=== PATIENT | female | born 1975 | race Caucasian/White ===

== ENCOUNTER 2018-05-12 21:14 | Emergency (ER) | payer BC ==
[~2018-05-12] VITALS: Ht 157.5 cm; Wt 89.8 kg
[~2018-05-12 21:14] MED LIST: ACET500T33 PO; DESV50TA PO; IBUP200T44 PO; MULT1TAB52 PO; NORT25CA PO; PHEN105C PO
--- NOTE | 2018-05-12 21:24 | ED.ADGEN ---
Past History Past Medical History: Migraines Past Surgical History: Cholecystectomy, Hysterectomy, Other Alcohol Use: Rarely Drug Use: None Adult General Chief Complaint Chief Complaint ".. I had just eaten some Cheese crackers.. and then I got this bad .. Lt. lower abd. pain...I ve felt off all day.. Like if I could not urinate.. or discomfort on the Lt....but it has gotten severe this afternoon...." HPI HPI Patient is a 42 year old female who presents with above history and left lower quadrant abdomen pain. Patient denies any specific history of dysuria but has had less urine output. Patient describes her pain as severe.. Patient denies any vaginal discharge. Patient denies any trauma. Patient denies any bad food. Patient denies history of constipation. Patient is able to pass gas. Patient has had abdomen surgeries with a partial hysterectomy, cholecystectomy and a bladder sling operation. Patient still retains ovaries. No history of travel. No history of ill contacts. Has pets- dog and cats, but they are not sick. No significant No specific ill contacts. No history of kidney stones, colitis, IBS with her or family members. Review of Systems Review of Systems Constitutional: Denies fever or chills [] Eyes: Denies change in visual acuity, redness, or eye pain [] HENT: Denies nasal congestion or sore throat [] Respiratory: Denies cough or shortness of breath [] Cardiovascular: No additional information not addressed in HPI [] GI: Complaints of abdominal pain, nausea. Denies, vomiting, bloody stools or diarrhea [] : Denies dysuria or hematuria [] Musculoskeletal: Denies back pain or joint pain [] Integument: Denies rash or skin lesions [] Neurologic: Denies headache, focal weakness or sensory changes [] Endocrine: Denies polyuria or polydipsia [] All other systems were reviewed and found to be within normal limits, except as documented in this note. Family History Family History Non contributory Current Medications Current Medications Current Medications Medications (Trade) Dose Ordered Sig/Lizzie Start Time Stop Time Status Last Admin Dose Admin Famotidine (Pepcid) 20 mg 1X ONCE 05/12/18 22:15 05/12/18 22:16 DC 05/12/18 22:31 20 MG Ketorolac Tromethamine (Toradol) 30 mg 1X ONCE 05/12/18 23:15 05/12/18 23:16 DC 05/12/18 23:19 30 MG Lactated Ringer's 1,000 ml @ 75 mls/hr 1X ONCE 05/12/18 21:45 05/13/18 11:04 05/12/18 21:51 75 MLS/HR Magnesium Hydroxide (Milk Of Magnesia) 2,400 mg 1X ONCE 05/12/18 22:15 05/12/18 22:16 DC 05/12/18 22:31 2,400 MG Morphine Sulfate (Morphine 10mg Syringe) 10 mg 1X ONCE 05/12/18 22:15 05/12/18 22:16 DC 05/12/18 22:27 10 MG Ondansetron HCl (Zofran Odt) 8 mg 1X ONCE 05/12/18 22:15 05/12/18 22:16 DC 05/12/18 22:30 8 MG Tamsulosin HCl (Flomax) 0.4 mg 1X ONCE 05/12/18 23:15 05/12/18 23:16 DC 05/12/18 23:17 0.4 MG Allergies Allergies Allergies Coded Allergies Type Severity Reaction Last Updated Verified Penicillins Allergy Unknown 11/06/15 No oxycodone Adverse Reaction Intermediate Nausea and Vomiting 05/12/18 Yes Physical Exam Physical Exam Constitutional: Moderately acute distress, non-toxic appearance. [] HENT: Normocephalic, atraumatic, bilateral external ears normal, oropharynx moist, no oral exudates, nose normal. [] Eyes: PERRLA, EOMI, conjunctiva normal, no discharge. [] Neck: Normal range of motion, no tenderness, supple, no stridor. [] Cardiovascular:Heart rate regular rhythm, no murmur [] Lungs & Thorax: Bilateral breath sounds clear to auscultation [] Abdomen: Bowel sounds decreased , soft, Lt. lower tenderness, no masses, no pulsatile masses. [] Rebound to left lower quadrant. Old surgical scars Skin: Warm, dry, no erythema, no rash. [] Back: No tenderness, Lt CVA tenderness on percussion. Extremities: No tenderness, no cyanosis, no clubbing, ROM intact, no edema. [] No true psoas or obturator or heeltap Neurologic: Alert and oriented X 3, normal motor function, normal sensory function, no focal deficits noted. [] Psychologic: Affect anxious, judgement normal, mood normal. [] Current Patient Data Vital Signs Vital Signs Date Time Temp Pulse Resp B/P (MAP) Pulse Ox O2 Delivery O2 Flow Rate FiO2 05/12/18 23:59 68 16 127/72 (90) 97 Room Air 05/12/18 21:17 98.6 Lab Results Laboratory Tests Test 05/12/18 21:20 05/12/18 21:45 05/12/18 21:53 Urine Collection Type Void Urine Color Yellow Urine Clarity Clear Urine pH 6.0 Urine Specific [place] 1.025 Urine Protein Neg (NEG-TRACE) Urine Glucose (UA) Neg mg/dL (NEG) Urine Ketones (Stick) Trace mg/dL (NEG) Urine Blood Large (NEG) Urine Nitrite Neg (NEG) Urine Bilirubin Neg (NEG) Urine Urobilinogen Dipstick 0.2 mg/dL (0.2 mg/dL) Urine Leukocyte Esterase Neg (NEG) Urine RBC 11-20 /HPF (0-2) Urine WBC Occ /HPF (0-4) Urine Squamous Epithelial Cells Few /LPF Urine Bacteria Few /HPF (0-FEW) Urine Mucus Slight /LPF Urine Test Negative (NEG) White Blood Count 8.5 x10^3/uL (4.0-11.0) Red Blood Count 5.12 x10^6/uL (3.50-5.40) Hemoglobin 14.3 g/dL (12.0-15.5) Hematocrit 41.7 % (36.0-47.0) Mean Corpuscular Volume 82 fL (79-100) Mean Corpuscular Hemoglobin 28 pg (25-35) Mean Corpuscular Hemoglobin Concent 34 g/dL (31-37) Red Cell Distribution Width 13.5 % (11.5-14.5) Platelet Count 328 x10^3/uL (140-400) Neutrophils (%) (Auto) 62 % (31-73) Lymphocytes (%) (Auto) 27 % (24-48) Monocytes (%) (Auto) 8 % (0-9) Eosinophils (%) (Auto) 3 % (0-3) Basophils (%) (Auto) 1 % (0-3) Neutrophils # (Auto) 5.3 x10^3uL (1.8-7.7) Lymphocytes # (Auto) 2.3 x10^3/uL (1.0-4.8) Monocytes # (Auto) 0.7 x10^3/uL (0.0-1.1) Eosinophils # (Auto) 0.2 x10^3/uL (0.0-0.7) Basophils # (Auto) 0.1 x10^3/uL (0.0-0.2) Sodium Level 142 mmol/L (136-145) Potassium Level 3.6 mmol/L (3.5-5.1) Chloride Level 107 mmol/L (98-107) Carbon Dioxide Level 27 mmol/L (21-32) Anion Gap 8 (6-14) Blood Urea Nitrogen 19 mg/dL (7-20) Creatinine 0.8 mg/dL (0.6-1.0) Estimated GFR (Cockcroft-Gault) 78.7 Glucose Level 110 mg/dL (70-99) H Calcium Level 9.2 mg/dL (8.5-10.1) Total Bilirubin 0.3 mg/dL (0.2-1.0) Direct Bilirubin 0.1 mg/dL (0.0-0.2) Aspartate Amino Transferase (AST) 19 U/L (15-37) Alanine Aminotransferase (ALT) 35 U/L (14-59) Alkaline Phosphatase 133 U/L (46-116) H Total Protein 7.1 g/dL (6.4-8.2) Albumin 3.6 g/dL (3.4-5.0) Amylase Level 53 U/L (25-115) Lipase 92 U/L (73-393) EKG EKG [] Radiology/Procedures Radiology/Procedures My interpretation acute abdomen film shows no acute cardiopulmonary findings. No free air under the diaphragm. Has findings of previous surgical clips in right upper quadrant and lower pelvic area. There is increased stool in colon. Left renal silhouette appears to be slightly enlarged. Does have stones and bladder. Nonspecific bowel gas pattern.[] \\ My interpretation of CT shows distal stone with hydronephrosis. See formal report when available. Course & Med Decision Making Course & Med Decision Making Pertinent Labs and Imaging studies reviewed. (See chart for details) Push fluids. Tylenol and Ibuprofen for pain. Vicoprofen if marked pain up 4 x day. Avoid constipation. Flomax daily if passing stone. Zofran for nausea and vomiting. Screen urine and save stone if passed. Follow up with primary. Return if any concern.s. [] Final Impression Final Impression 1. Abdomen Pain[]-left lower quadrant 2. Hematuria 3. Renal colic- Lt. stone- 4.5 distal. 4. Constipation Dragon Disclaimer Dragon Disclaimer This electronic medical record was generated, in whole or in part, using a voice recognition dictation system. AMBERLY ARZOLA MD May 12, 2018 21:24
[2018-05-12] MEDS: IV RINGERS SOLUTION,LACTATED 1,000 ML IV ONE (21:51)
[2018-05-12 22:03] LABS: CLARITY,URINE CLEAR; COLOR,URINE YELLOW
[2018-05-12 22:04] LABS: BACTERIA,URINE FEW /HPF (0-FEW); BILIRUBIN,URINE NEG (NEG); GLUCOSE,URINE NEG (NEG); NITRITE,URINE NEG (NEG); SQUAMOUS EPITHELIAL CELL,UR FEW /LPF; UROBILINOGEN,URINE 0.2 mg/dL (0.2 mg/dL); WBC,URINE OCC /HPF (0-4)
[2018-05-12 22:05] LABS: U PREG PATIENT NEGATIVE (NEG)
[2018-05-12 22:19] LABS: BASO # 0.1 x10^3/uL (0.0-0.2); BASO % 1 % (0-3); EOS # 0.2 x10^3/uL (0.0-0.7); EOS % 3 % (0-3); HEMATOCRIT 41.7 % (36.0-47.0); HEMOGLOBIN 14.3 g/dL (12.0-15.5); LYMPH # 2.3 x10^3/uL (1.0-4.8); LYMPH % 27 % (24-48); MEAN CORPUSCULAR HEMOGLOBIN 28 pg (25-35); MEAN CORPUSCULAR HGB CONC 34 g/dL (31-37); MEAN CORPUSCULAR VOLUME 82 fL (79-100); MONO # 0.7 x10^3/uL (0.0-1.1); MONO % 8 % (0-9); NEUT # 5.3 x10^3uL (1.8-7.7); NEUT % 62 % (31-73); PLATELET COUNT 328 x10^3/uL (140-400); RED BLOOD COUNT 5.12 x10^6/uL (3.50-5.40); RED CELL DISTRIBUTION WIDTH 13.5 % (11.5-14.5); WHITE BLOOD COUNT 8.5 x10^3/uL (4.0-11.0)
[2018-05-12 22:26] LABS: CALCIUM 9.2 mg/dL (8.5-10.1); CREATININE 0.8 mg/dL (0.6-1.0); GFR 78.7; POTASSIUM 3.6 mmol/L (3.5-5.1)
[2018-05-12] MEDS: MORPHINE SULFATE 10 MG/ML SYRINGE. SQ ONE (22:27)
[2018-05-12] MEDS: ONDANSETRON ODT 4 MG TAB.RAPDIS PO ONE (22:30)
[2018-05-12] MEDS: FAMOTIDINE 20 MG TABLET PO ONE (22:31)
[2018-05-12] MEDS: MAGNESIUM HYDROXIDE 2,400 MG/30 ML ORAL.SUSP. PO ONE (22:31)
[2018-05-12 22:40] LABS: ALBUMIN 3.6 g/dL (3.4-5.0); DIRECT BILIRUBIN 0.1 mg/dL (0.0-0.2); TOTAL BILIRUBIN 0.3 mg/dL (0.2-1.0); TOTAL PROTEIN 7.1 g/dL (6.4-8.2)
[2018-05-12] MEDS: TAMSULOSIN 0.4 MG CAP.ER.24H. PO ONE (23:17)
[2018-05-12] MEDS: KETOROLAC 30 MG/ML VIAL. IV ONE (23:19)
--- NOTE | 2018-05-12 23:39 | RAD ---
Abdominal and Pelvis CT, Without Contrast: History: Left flank pain and lower abdominal pain. Comparison: None. Procedure: Axial images are obtained of the abdomen and pelvis, without IV or oral contrast. CT Abdomen without Contrast: Findings: Evaluation of solid organs is limited without contrast. Evaluation of stomach and bowel is limited without oral contrast. Liver: Normal. Spleen: Normal. Pancreas: Normal. Adrenal Glands: Normal. Kidneys: There is mild left hydroureter and left hydronephrosis. There is no free air or free fluid. There is no lymphadenopathy. Impression: Please see CT Pelvis without Contrast. End Impression. CT Pelvis without Contrast: Findings: The urinary bladder is seen with a 4.5 mm stone in the left UVJ. The appendix is normal. There is no free fluid. There is no lymphadenopathy. There is no pericolonic inflammation identified. Impression: 4.5 mm stone left UVJ with mild left hydronephrosis and left hydroureter. End impression PQRS Compliance Statement: One or more of the following individualized dose reduction techniques were utilized for this examination: 1. Automated exposure control 2. Adjustment of the mA and/or kV according to patient size 3. Use of iterative reconstruction technique Electronically signed by: Cas Thomas III, MD (05/12/2018 11:37 PM) [facility]
[2018-05-12 23:59] VITALS: BP 127/72
[2018-05-12] MEDS ORDERED: HYDR-79 PO (23:59)
[2018-05-12] MEDS ORDERED: TAMS0.4C97 PO (23:59)
[2018-05-12] MEDS ORDERED: ONDA8TAB12 PO (23:59)
--- NOTE | 2018-05-13 08:16 | RAD ---
Acute abdomen series with chest, 3 views, 05/12/2018: HISTORY: Left-sided pain There are surgical clips in the right upper quadrant. The abdominal gas pattern is unremarkable. No free air is evident in the abdomen. There is no evidence organomegaly. The patient's known small calculus at the left ureterovesical junction is faintly visible. There are several additional lower pelvic calcifications compatible with phleboliths. The heart size and pulmonary vascularity are normal. The lungs are clear. There is no evidence of pleural fluid. IMPRESSION: 1. The patient's known left UVJ calculus is faintly visible radiographically. 2. Otherwise no acute abdominal abnormality is detected. Electronically signed by: Benito Fry MD (05/13/2018 8:13 AM) [facility]
== END 2018-05-13 00:14 | disposition home or self-care (01) ==
LOC: ER 21:14
DX: N23 Unspecified renal colic (principal); R31.9 Hematuria, unspecified; K59.00 Constipation, unspecified; G43.909 Migraine, unspecified, not intractable, without status migrainosus; Z90.49 Acquired absence of other specified parts of digestive tract; Z90.710 Acquired absence of both cervix and uterus; Z88.0 Allergy status to penicillin; Z88.5 Allergy status to narcotic agent
CPT/HCPCS: 36415; 74022; 74176; 80048; 80076; 81001; 81025; 82150; 83690; 85025; 96361; 96372; 96374; 99285; J1885; J2270; J7120; Q0162

== ENCOUNTER → 2018-05-28 | Outpatient (CLI) | payer BC ==
[2018-05-12 23:59] VITALS: BP 127/72
[~2018-05-28] MED LIST changes: +HYDR-79 PO; +ONDA8TAB12 PO; +TAMS0.4C97 PO
--- NOTE | 2018-05-28 15:45 | RAD ---
PQRS Compliance Statement: One or more of the following individualized dose reduction techniques were utilized for this examination: 1. Automated exposure control 2. Adjustment of the mA and/or kV according to patient size 3. Use of iterative reconstruction technique CT ABDOMEN PELVIS WO CONTRAST Clinical Indication: Follow up left kidney stone seen 05/12/18 Comparison: CT the abdomen and pelvis without contrast, May 12, 2018. Technique: Helical CT imaging of the abdomen and pelvis is performed without IV or oral contrast. Findings: Lung bases clear. Cardiac size normal. Cholecystectomy. Tiny hypodensity in the hepatic dome is stable. Liver otherwise homogeneous. Spleen, pancreas, adrenal glands, and abdominal aorta are normal. No renal, ureteral, or bladder calculus. No hydronephrosis or perinephric stranding. Previously seen calculus at the left UVJ is no longer present. Stomach unremarkable. No dilated small bowel. No colon wall thickening. The appendix is normal. Subcentimeter retroperitoneal and mesenteric lymph nodes. No adenopathy. Tiny fat-containing umbilical hernia. No abdominal free fluid. Urinary bladder is not well distended accentuating wall thickness. Uterus surgically absent. No pelvic free fluid. No acute bone abnormality. IMPRESSION: No acute abdominal or pelvic abnormality. No obstructive uropathy. Electronically signed by: Ha Fernandez MD (05/28/2018 3:42 PM) [id number]
== END | disposition home or self-care (01) ==
LOC: CT 15:06
PROVIDERS: ATTEND Urology
DX: N20.1 Calculus of ureter (principal); G43.909 Migraine, unspecified, not intractable, without status migrainosus
CPT/HCPCS: 74176

== ENCOUNTER → 2019-02-07 | Outpatient (CLI) | payer BC ==
[~2019-02-07] MED LIST changes: +HYDR-1179 PO; -HYDR-79 PO; -PHEN105C PO; +PHEN105C32 PO
--- NOTE | 2019-02-08 08:07 | RAD ---
Right elbow, 2 views, 02/07/2019: HISTORY: Pain No fracture or dislocation is identified. No significant arthritic change or joint effusion is evident. Impression: No significant right elbow abnormality is detected. Electronically signed by: Benito Fry MD (02/08/2019 8:05 AM) [facility]
--- NOTE | 2019-02-08 08:09 | RAD ---
Right hand, 2 views, 02/07/2019: HISTORY: Pain There is a linear radiopaque foreign body compatible with an old broken needle fragment projected over the soft tissues along the volar aspect of the distal forearm. No hand fracture or dislocation is identified. No bone erosions or significant arthritic changes are seen. IMPRESSION: 1. No significant bony abnormality is detected. 2. Small radiopaque foreign body in the soft tissues of the distal forearm Electronically signed by: Benito Fry MD (02/08/2019 8:07 AM) [facility]
== END | disposition home or self-care (01) ==
LOC: PMG 17:02
PROVIDERS: ATTEND Registered Nurse
DX: S50.851A Superficial foreign body of right forearm, initial encounter (principal); X58.XXXA Exposure to other specified factors, initial encounter; Y93.89 Activity, other specified; Y92.89 Other specified places as the place of occurrence of the external cause; Y99.8 Other external cause status
CPT/HCPCS: 73070; 73120

== ENCOUNTER → 2019-03-01 | Outpatient (CLI) | payer BC ==
--- NOTE | 2019-03-01 11:11 | RAD ---
Focused sonographic evaluation of the distal right forearm 03/01/2019 INDICATION: Prior radiographic identification of a metallic density radiopaque foreign body in the anterior distal forearm. COMPARISON STUDY: Right hand radiographs February 07, 2019 Discussion: Focused ultrasound evaluation of the distal right forearm was performed. No foreign bodies were identified sonographically. No focal mass or fluid collection is seen. No focal sonographic abnormality is seen. IMPRESSION: No focal sonographic abnormality is identified. Consider correlation with radiograph to evaluate for presence of radiopaque foreign body previously identified radiographically. Electronically signed by: Kenji Ruiz MD (03/01/2019 11:08 AM) [id number]
== END | disposition home or self-care (01) ==
LOC: US 09:49
PROVIDERS: ATTEND Family Medicine
DX: M79.5 Residual foreign body in soft tissue (principal)
CPT/HCPCS: 76881

== ENCOUNTER 2019-05-09 11:42 | Emergency (ER) | payer BC ==
[~2019-05-09] VITALS: Ht 157.5 cm; Wt 90.7 kg
[2019-05-09] MEDS ORDERED: IV NORMAL SALINE 1,000ML 1,000 ML IV SCH (12:07)
--- NOTE | 2019-05-09 12:14 | PHYS DOC ---
Past History Past Medical History: No Pertinent History Past Surgical History: Hysterectomy, Other Alcohol Use: None Drug Use: None Adult General Chief Complaint Chief Complaint: ABDOMINAL PAIN HPI HPI Patient is a 43 year old female who presents with complaint of nausea, vomiting, and diarrhea. Patient states her symptoms started this morning upon awakening. Notes that she has had 4-5 episodes of vomiting and too numerous to count episodes of loose stools since awakening. Notes that she has been having cramping abdominal pain intermittently throughout the morning and states that this has been associated with vomiting and bowel movements. Denies any localizing abdominal pain at rest. No fever. Patient has come to the emergency department with her daughter who is also been having similar symptoms. Denies any known exposure to spoiled food. States that her ate the same food last night but does not have any symptoms today. Review of Systems Review of Systems Constitutional: Denies fever or chills [] Eyes: Denies change in visual acuity, redness, or eye pain [] HENT: Denies nasal congestion or sore throat [] Respiratory: Denies cough or shortness of breath [] Cardiovascular: Denies chest pain or edema[] GI: Nausea, vomiting, diarrhea, abdominal cramping[] : Denies dysuria or hematuria [] Musculoskeletal: Denies back pain or joint pain [] Integument: Denies rash or skin lesions [] Neurologic: Denies headache, focal weakness or sensory changes [] All other systems were reviewed and found to be within normal limits, except as documented in this note. Current Medications Current Medications Current Medications Medications (Trade) Dose Ordered Sig/[facility] Start Time Stop Time Status Last Admin Dose Admin Famotidine (Pepcid Vial) 20 mg 1X ONCE 05/09/19 12:30 05/09/19 12:31 Ondansetron HCl (Zofran) 4 mg 1X ONCE 05/09/19 12:30 05/09/19 12:31 Sodium Chloride 1,000 ml @ 1,000 mls/hr Q1H 05/09/19 12:07 05/09/19 13:06 Allergies Allergies Allergies Coded Allergies Type Severity Reaction Last Updated Verified Penicillins Allergy Unknown 11/06/15 No oxycodone Adverse Reaction Intermediate Nausea and Vomiting 05/12/18 Yes Physical Exam Physical Exam Constitutional: Alert, afebrile, appears ill. [] HENT: Normocephalic, atraumatic, bilateral external ears normal, oropharynx moist, no oral exudates, nose normal. [] Eyes: PERRLA, EOMI, conjunctiva normal, no discharge. [] Neck: Normal range of motion, no tenderness, supple, no stridor. [] Cardiovascular: Tachycardia, regular rhythm, no murmur [] Lungs & Thorax: Bilateral breath sounds clear to auscultation [] Abdomen: Bowel sounds normal, soft, no tenderness, no masses, no pulsatile mas ses. [] Skin: Warm, dry, no erythema, no rash. [] Back: No tenderness, no CVA tenderness. [] Extremities: No tenderness, no cyanosis, no clubbing, ROM intact, no edema. [] Neurologic: Alert and oriented X 3, normal motor function, normal sensory function, no focal deficits noted. [] Current Patient Data Vital Signs Vital Signs Date Time Temp Pulse Resp B/P (MAP) Pulse Ox O2 Delivery O2 Flow Rate FiO2 05/09/19 12:39 99.0 76 18 97 Room Air Lab Results Laboratory Tests Test 05/09/19 12:25 White Blood Count 11.3 x10^3/uL Red Blood Count 5.84 x10^6/uL Hemoglobin 14.9 g/dL Hematocrit 45.3 % Mean Corpuscular Volume 78 fL Mean Corpuscular Hemoglobin 26 pg Mean Corpuscular Hemoglobin Concent 33 g/dL Red Cell Distribution Width 17.1 % Platelet Count 333 x10^3/uL Neutrophils (%) (Auto) 90 % Lymphocytes (%) (Auto) 5 % Monocytes (%) (Auto) 4 % Eosinophils (%) (Auto) 1 % Basophils (%) (Auto) 1 % Neutrophils # (Auto) 10.2 x10^3uL Lymphocytes # (Auto) 0.6 x10^3/uL Monocytes # (Auto) 0.4 x10^3/uL Eosinophils # (Auto) 0.1 x10^3/uL Basophils # (Auto) 0.1 x10^3/uL Sodium Level 140 mmol/L Potassium Level 4.1 mmol/L Chloride Level 104 mmol/L Carbon Dioxide Level 26 mmol/L Anion Gap 10 Blood Urea Nitrogen 19 mg/dL Creatinine 0.9 mg/dL Estimated GFR (Cockcroft-Gault) 68.3 BUN/Creatinine Ratio 21 Glucose Level 92 mg/dL Calcium Level 9.0 mg/dL Total Bilirubin 0.9 mg/dL Aspartate Amino Transf (AST/SGOT) 19 U/L Alanine Aminotransferase (ALT/SGPT) 34 U/L Alkaline Phosphatase 129 U/L Total Protein 7.4 g/dL Albumin 3.9 g/dL Albumin/Globulin Ratio 1.1 Lipase 53 U/L Current Medications Medications (Trade) Dose Ordered Sig/Lizzie Route PRN Reason Start Time Stop Time Status Last Admin Dose Admin Sodium Chloride 1,000 ml @ 1,000 mls/hr Q1H IV 05/09/19 12:07 05/09/19 13:06 DC 05/09/19 12:34 Ondansetron HCl (Zofran) 4 mg 1X ONCE IV 05/09/19 12:30 05/09/19 12:31 DC 05/09/19 12:34 Famotidine (Pepcid Vial) 20 mg 1X ONCE IVP 05/09/19 12:30 05/09/19 12:31 DC 05/09/19 12:34 EKG EKG Not performed[] Radiology/Procedures Radiology/Procedures Not performed[] Course & Med Decision Making Course & Med Decision Making Pertinent Labs and Imaging studies reviewed. (See chart for details) Patient given IV fluids, Zofran, and Pepcid. Patient's had no further episodes of vomiting. Symptoms appear consistent with self-limiting gastrointestinal i llness. Patient has no evidence of acute abdomen on examination. Patient appropriate for outpatient treatment and follow-up with primary doctor. Recommended follow-up in 2 days with PCP and recommended return to the emergency department for any worsening symptoms. Patient was understanding and in agreement with treatment plan.[] Dragon Disclaimer Dragon Disclaimer This electronic medical record was generated, in whole or in part, using a voice recognition dictation system. Departure Departure: Impression: Primary Impression: Nausea and vomiting Additional Impressions: Diarrhea Abdominal cramping Disposition: 01 HOME, SELF-CARE Condition: IMPROVED Referrals: CATHY RAMSEY (PCP) Patient Instructions: Abdominal Pain (Nonspecific), Diarrhea, Nausea and Vomiting Additional Instructions: Follow-up with your primary doctor in 2 days for reevaluation. Return to the emergency department for any worsening symptoms. Scripts Ondansetron (ONDANSETRON ODT) 4 Mg Tab.rapdis 1 TAB PO PRN Q6-8HRS PRN for NAUSEA/VOMITING, #16 TAB Prov: MIKA CLEMENTS MD 05/09/19 Problem Qualifiers Primary Impression: Nausea and vomiting Vomiting type: unspecified Vomiting Intractability: non-intractable Qualified Codes: R11.2 - Nausea with vomiting, unspecified Additional Impressions: Diarrhea Diarrhea type: presumed infectious Qualified Codes: R19.7 - Diarrhea, unspecified MIKA CLEMENTS MD May 09, 2019 12:14
[2019-05-09] MEDS ORDERED: ONDANSETRON PF 4 MG/2 ML VIAL. IV ONE (12:30)
[2019-05-09] MEDS ORDERED: FAMOTIDINE 20 MG/2 ML VIAL IVP ONE (12:30)
[2019-05-09 12:34] LABS: BASO # 0.1 x10^3/uL (0.0-0.2); BASO % 1 % (0-3); EOS # 0.1 x10^3/uL (0.0-0.7); EOS % 1 % (0-3); HEMATOCRIT 45.3 % (36.0-47.0); HEMOGLOBIN 14.9 g/dL (12.0-15.5); LYMPH # 0.6 x10^3/uL (1.0-4.8); LYMPH % 5 % (24-48); MEAN CORPUSCULAR HEMOGLOBIN 26 pg (25-35); MEAN CORPUSCULAR HGB CONC 33 g/dL (31-37); MEAN CORPUSCULAR VOLUME 78 fL (79-100); MONO # 0.4 x10^3/uL (0.0-1.1); MONO % 4 % (0-9); NEUT # 10.2 x10^3uL (1.8-7.7); NEUT % 90 % (31-73); PLATELET COUNT 333 x10^3/uL (140-400); RED BLOOD COUNT 5.84 x10^6/uL (3.50-5.40); RED CELL DISTRIBUTION WIDTH 17.1 % (11.5-14.5); WHITE BLOOD COUNT 11.3 x10^3/uL (4.0-11.0)
[2019-05-09 12:49] LABS: ALBUMIN 3.9 g/dL (3.4-5.0); ALBUMIN/GLOBULIN RATIO 1.1 (1.0-1.7); CREATININE 0.9 mg/dL (0.6-1.0); GFR 68.3; POTASSIUM 4.1 mmol/L (3.5-5.1); TOTAL BILIRUBIN 0.9 mg/dL (0.2-1.0); TOTAL PROTEIN 7.4 g/dL (6.4-8.2)
[2019-05-09] MEDS ORDERED: ONDA4TAB12 PO (13:20)
[2019-05-09 13:44] VITALS: BP 131/93
[2019-05-09] MEDS ORDERED: DIPHTH,PERTUSS(ACELL),TET TOX 0.5 ML DISP.SYRIN. VAX IM ONE (13:45)
== END 2019-05-09 13:44 | disposition home or self-care (01) ==
LOC: ER 11:42
DX: R11.2 Nausea with vomiting, unspecified (principal); R19.7 Diarrhea, unspecified; R10.9 Unspecified abdominal pain; Z90.710 Acquired absence of both cervix and uterus; Z88.0 Allergy status to penicillin; Z88.5 Allergy status to narcotic agent
CPT/HCPCS: 36415; 80053; 83690; 85025; 96361; 96374; 96375; 99284; J2405; J3490; J7030

== ENCOUNTER 2020-08-20 21:32 | Emergency (ER) | payer BC ==
[~2020-08-20] VITALS: Ht 157.5 cm; Wt 81.8 kg
[~2020-08-20 21:32] MED LIST changes: +MULT-445 PO; -MULT1TAB52 PO; +ONDA4TAB12 PO
--- NOTE | 2020-08-20 21:59 | PHYS DOC ---
Past History Past Medical History: No Pertinent History Past Surgical History: Hysterectomy, Other Alcohol Use: None Drug Use: None General Adult EDM: Chief Complaint: ABDOMINAL PAIN HPI: HPI: 44-year-old female presents with right lower quadrant abdominal pain. The patient started to have generalized lower abdominal pain about 3 days ago and it is gotten worse. Today it is extremely tender and any movement is painful. It is all in the right lower quadrant radiating to the left. Patient denies fall or trauma. She denies fever or chills. She still has her appendix. Review of Systems: Review of Systems: Constitutional: Denies fever or chills Eyes: Denies change in visual acuity HENT: Denies nasal congestion or sore throat Respiratory: Denies cough or shortness of breath Cardiovascular: Denies chest pain or edema GI: Right lower quadrant abdominal pain. Denies vomiting, bloody stools or diarrhea : Denies dysuria Musculoskeletal: Denies back pain or joint pain Integument: Denies rash Neurologic: Denies headache, focal weakness or sensory changes Endocrine: Denies polyuria or polydipsia Lymphatic: Denies swollen glands Psychiatric: Denies depression or anxiety Heart Score: Risk Factors: Risk Factors: DM, Current or recent (<one month) smoker, HTN, HLP, family history of CAD, obesity. Risk Scores: Score 0 - 3: 2.5% MACE over next 6 weeks - Discharge Home Score 4 - 6: 20.3% MACE over next 6 weeks - Admit for Clinical Observation Score 7 - 10: 72.7% MACE over next 6 weeks - Early Invasive Strategies Current Medications: Current Meds: Current Medications Medications (Trade) Dose Ordered Sig/[facility] Start Time Stop Time Status Last Admin Dose Admin Iohexol (Omnipaque 300 Mg/ml) 75 ml 1X ONCE 08/20/20 22:00 08/20/20 22:01 Sodium Chloride 1,000 ml @ 1,000 mls/hr 1X ONCE 08/20/20 22:00 08/20/20 22:59 Allergies: Allergies: Allergies Coded Allergies Type Severity Reaction Last Updated Verified Penicillins Allergy Unknown 11/06/15 No oxycodone Adverse Reaction Intermediate Nausea and Vomiting 05/12/18 Yes Physical Exam: PE: Constitutional: Well developed, well nourished, no acute distress, non-toxic appearance. [] HENT: Normocephalic, atraumatic, bilateral external ears normal, oropharynx moist, no oral exudates, nose normal. [] Eyes: PERRLA, EOMI, conjunctiva normal, no discharge. [] Neck: Normal range of motion, no tenderness, supple, no stridor. [] Cardiovascular:Heart rate regular rhythm, no murmur [] Lungs & Thorax: Bilateral breath sounds clear to auscultation [] Abdomen: Bowel sounds normal, soft, RLQ tenderness with guarding and rebound tenderness, no masses, no pulsatile masses. [] Skin: Warm, dry, no erythema, no rash. [] Back: No tenderness, no CVA tenderness. [] Extremities: No tenderness, no cyanosis, no clubbing, ROM intact, no edema. [] Neurologic: Alert and oriented X 3, normal motor function, normal sensory function, no focal deficits noted. [] Psychologic: Affect normal, judgement normal, mood normal. [] Current Patient Data: Vital Signs: Vital Signs Date Time Temp Pulse Resp B/P (MAP) Pulse Ox O2 Delivery O2 Flow Rate FiO2 08/20/20 21:52 99.8 117 22 133/78 (96) 98 Room Air EKG: EKG: [] Radiology/Procedures: Radiology/Procedures: [] Impressions: CT abdomen pelvis with contrast dated 08/20/2020. No comparison available. CLINICAL INDICATION: Right lower quadrant pain for 3 days. TECHNIQUE: Contiguous axial imaging of the abdomen pelvis performed after the administration of 75 cc Omnipaque 300. One or more of the following individualized dose reduction techniques were utilized for this examination: 1. Automated exposure control 2. Adjustment of the mA and/or kV according to patient size 3. Use of iterative reconstruction technique. FINDINGS: Limited images of lung bases are clear. Heart size within normal limits. No pleural or pericardial effusion. Liver and spleen are homogeneous. There is a tiny hypodensity at the inferior right lobe, likely small cyst or other benign lesion. No biliary ductal dilatation. The gallbladder is surgically absent. Spleen is normal in size. Pancreas, adrenal glands and kidneys are unremarkable. No hydronephrosis. Unopacified GI tract normal in caliber and contour. No focal bowel wall thickening. The appendix is normal in caliber. No ascites or lymphadenopathy. Abdominal aorta normal in caliber. Images of pelvis show nondistended urinary bladder. The uterus is surgically absent. There is a cystic focus at the right ovary that measures up to 3.1 cm. No significant free pelvic fluid or pelvic lymphadenopathy. Bone windows show no acute findings. Mild lower lumbar spondylosis. IMPRESSION: 1. No acute abnormality of abdomen or pelvis. Normal appendix. 2. There is a 3.1 cm right ovarian cyst. 3. Status post cholecystectomy. Electronically signed by: Bassem López MD (08/20/2020 10:49 PM) [facility] DICTATED AND SIGNED BY: BASSEM LÓPEZ MD DATE: 08/20/20 2249 CC: ANTELMO SHARMA DO; CATHY RAMSEY ~ Complete transvaginal pelvic ultrasound HISTORY: 44-year-old female with right lower quadrant abdominal pain, 3 cm right ovarian cyst on recent CT imaging. FINDINGS: Transvaginal imaging demonstrates absence of uterus hysterectomy. Left ovary absent or markedly atrophic. Right ovary measures 2.3 x 3.2 0.7 cm with intact blood flow. No pelvic fluid. Transvaginal imaging demonstrates placement of most of the right ovary by a hypoechoic round cyst which measures 2.5 x 2.4 x 2.5 cm with some echogenic internal septations, no vascular blood flow within this cyst, this is most typical of a subacute hemorrhagic cyst. The right ovary measures 4.1 x 2.9 x 2.5 cm. There is intact ovarian blood flow peripheral of this cyst with normal waveforms without evidence of ovarian torsion. The left ovary is not visualized presumably markedly atrophic or surgically absent similar to prior CT imaging. Hysterectomy. IMPRESSION: Right ovarian 2.5 cm unilocular hypoechoic cyst with internal septations most typical of a subacute hemorrhagic cyst. Consider follow-up sonography in 3 months to document that this resolves over time. Hysterectomy. Left ovary absent or markedly atrophic and not visualized. Electronically signed by: Sherry Putnam MD (08/21/2020 1:16 AM) [facility] DICTATED AND SIGNED BY: SHERRY PUTNAM MD DATE: 08/21/20 0116 CC: ANTELMO SHARMA DO; CATHY RAMSEY ~ Course & Med Decision Making: Course & Med Decision Making Pertinent Labs and Imaging studies reviewed. (See chart for details) The patient's labs are unremarkable. Her urinalysis is negative for infection. Her CT scan shows a right ovarian cyst. Given her level of pain, I will have an ultrasound performed. I have given her 4 mg of morphine and a [place] 7.5. The patient's ultrasound does not show torsion. It does show a complicated, likely hemorrhagic cyst. I will discharge the patient with [place] 5/325 if she has further pain. She will follow-up with OB for repeat ultrasound and a couple months. She is stable for discharge at this time. [] Dragon Disclaimer: Dragon Disclaimer: This electronic medical record was generated, in whole or in part, using a voice recognition dictation system. Departure Departure: Impression: Primary Impression: Ovarian cyst Qualified Codes: N83.201 - Unspecified ovarian cyst, right side Disposition: HOME/RESIDENCE PRIOR TO ADM Condition: STABLE Referrals: CATHY RAMSEY (PCP) Scripts Hydrocodone Bit/Acetaminophen (NORCO 5-325 TABLET) 1 Each Tablet 1 TAB PO PRN Q6HRS PRN for PAIN, #14 TAB 0 Refills Prov: ANTELMO SHARMA DO 08/21/20 ANTELMO SHARMA DO Aug 20, 2020 21:59
[2020-08-20] MEDS ORDERED: IOHEXOL 300 MG/ML 75 ML VIAL. IV ONE (22:00)
[2020-08-20] MEDS ORDERED: IV NORMAL SALINE 1,000ML 1,000 ML IV ONE (22:00)
[2020-08-20] MEDS ORDERED: MORPHINE SULFATE 4 MG/ML DISP.SYRIN. IV ONE (22:00)
[2020-08-20] MEDS ORDERED: ONDANSETRON PF 4 MG/2 ML VIAL. IVP ONE (22:00)
[2020-08-20 22:25] LABS: BASO # 0.1 x10^3/uL (0.0-0.2); BASO % 1 % (0-3); EOS # 0.1 x10^3/uL (0.0-0.7); EOS % 1 % (0-3); HEMATOCRIT 38.4 % (36.0-47.0); LYMPH # 1.5 x10^3/uL (1.0-4.8); LYMPH % 13 % (24-48); MEAN CORPUSCULAR HEMOGLOBIN 23 pg (25-35); MEAN CORPUSCULAR HGB CONC 31 g/dL (31-37); MEAN CORPUSCULAR VOLUME 73 fL (79-100); MONO % 8 % (0-9); NEUT # 9.2 x10^3uL (1.8-7.7); NEUT % 77 % (31-73); PLATELET COUNT 314 x10^3/uL (140-400); RED BLOOD COUNT 5.24 x10^6/uL (3.50-5.40); RED CELL DISTRIBUTION WIDTH 14.9 % (11.5-14.5); WHITE BLOOD COUNT 11.9 x10^3/uL (4.0-11.0)
[2020-08-20 22:32] LABS: CALCIUM 9.1 mg/dL (8.5-10.1); CREATININE 0.8 mg/dL (0.6-1.0); GFR 77.9
[2020-08-20 22:37] LABS: AMORPHOUS SEDIMENT,UR PRESENT /HPF; BACTERIA,URINE 0 /HPF (0-FEW); BILIRUBIN,URINE NEG (NEG); CLARITY,URINE HAZY; COLOR,URINE YELLOW; GLUCOSE,URINE NEG (NEG); NITRITE,URINE NEG (NEG); RBC,URINE 0 /HPF (0-2); SQUAMOUS EPITHELIAL CELL,UR OCC /LPF; UROBILINOGEN,URINE 0.2 mg/dL (0.2 mg/dL); WBC,URINE OCC /HPF (0-4)
[2020-08-20 22:38] LABS: ALBUMIN 3.7 g/dL (3.4-5.0); ALBUMIN/GLOBULIN RATIO 1.1 (1.0-1.7); TOTAL BILIRUBIN 0.4 mg/dL (0.2-1.0); TOTAL PROTEIN 7.2 g/dL (6.4-8.2)
--- NOTE | 2020-08-20 22:52 | RAD ---
CT abdomen pelvis with contrast dated 08/20/2020. No comparison available. CLINICAL INDICATION: Right lower quadrant pain for 3 days. TECHNIQUE: Contiguous axial imaging of the abdomen pelvis performed after the administration of 75 cc Omnipaque 300. One or more of the following individualized dose reduction techniques were utilized for this examination: 1. Automated exposure control 2. Adjustment of the mA and/or kV according to patient size 3. Use of iterative reconstruction technique. FINDINGS: Limited images of lung bases are clear. Heart size within normal limits. No pleural or pericardial effusion. Liver and spleen are homogeneous. There is a tiny hypodensity at the inferior right lobe, likely small cyst or other benign lesion. No biliary ductal dilatation. The gallbladder is surgically absent. Spleen is normal in size. Pancreas, adrenal glands and kidneys are unremarkable. No hydronephrosis. Unopacified GI tract normal in caliber and contour. No focal bowel wall thickening. The appendix is normal in caliber. No ascites or lymphadenopathy. Abdominal aorta normal in caliber. Images of pelvis show nondistended urinary bladder. The uterus is surgically absent. There is a cystic focus at the right ovary that measures up to 3.1 cm. No significant free pelvic fluid or pelvic lymphadenopathy. Bone windows show no acute findings. Mild lower lumbar spondylosis. IMPRESSION: 1. No acute abnormality of abdomen or pelvis. Normal appendix. 2. There is a 3.1 cm right ovarian cyst. 3. Status post cholecystectomy. Electronically signed by: Bassem López MD (08/20/2020 10:49 PM) [facility]
[2020-08-20] MEDS ORDERED: HYDROcodone/APAP 7.5/325MG 1 TAB TABLET PO ONE (23:15)
--- NOTE | 2020-08-21 01:19 | RAD ---
Complete transvaginal pelvic ultrasound HISTORY: 44-year-old female with right lower quadrant abdominal pain, 3 cm right ovarian cyst on recent CT imaging. FINDINGS: Transvaginal imaging demonstrates absence of uterus hysterectomy. Left ovary absent or markedly atrophic. Right ovary measures 2.3 x 3.2 0.7 cm with intact blood flow. No pelvic fluid. Transvaginal imaging demonstrates placement of most of the right ovary by a hypoechoic round cyst which measures 2.5 x 2.4 x 2.5 cm with some echogenic internal septations, no vascular blood flow within this cyst, this is most typical of a subacute hemorrhagic cyst. The right ovary measures 4.1 x 2.9 x 2.5 cm. There is intact ovarian blood flow peripheral of this cyst with normal waveforms without evidence of ovarian torsion. The left ovary is not visualized presumably markedly atrophic or surgically absent similar to prior CT imaging. Hysterectomy. IMPRESSION: Right ovarian 2.5 cm unilocular hypoechoic cyst with internal septations most typical of a subacute hemorrhagic cyst. Consider follow-up sonography in 3 months to document that this resolves over time. Hysterectomy. Left ovary absent or markedly atrophic and not visualized. Electronically signed by: Santos Putnam MD (08/21/2020 1:16 AM) [facility]
[2020-08-21] MEDS ORDERED: HYDR-3165 PO (01:42)
[2020-08-21 02:04] VITALS: BP 119/72
== END 2020-08-21 02:09 | disposition home or self-care (01) ==
LOC: ER 21:32
DX: N83.201 Unspecified ovarian cyst, right side (principal); Z90.710 Acquired absence of both cervix and uterus; Z88.0 Allergy status to penicillin; Z88.5 Allergy status to narcotic agent
CPT/HCPCS: 36415; 74177; 76830; 76856; 80053; 81001; 85025; 96361; 96374; 96375; 99285; J2270; J2405; J7030; Q9967